=== PATIENT | male | born 1960 | race Caucasian/White ===

== ENCOUNTER 2017-04-19 09:59 | Emergency (ER) | payer MEDICARE, MEDICAID ==
[~2017-04-19] VITALS: Ht 180.3 cm; Wt 101.8 kg
[~2017-04-19 09:59] MED LIST: *ANUSOI; ALDA25TA2; AMBI10TA; CARV12.5; COLA100C2; FISHCAP; KLOR10TA; MELOPOW; METF500T4; MILKPOW; MIRAPEX; NAPR500T; PERC5TAB8; SIMV40TA2; SOMA350T; VITAMIN D50000 UNT; ZARO2.5T
[2017-04-19] MEDS ORDERED: IBUPROFEN 800 MG TAB PO ONE (11:45)
[2017-04-19] MEDS ORDERED: AUGMENTIN 875 MG TAB PO ONE (11:45)
[2017-04-19] MEDS ORDERED: IBUP80TA PO (11:46)
[2017-04-19] MEDS ORDERED: AUGM875T28 PO (11:46)
[2017-04-19 12:02] VITALS: BP 132/80
== END 2017-04-19 12:22 | disposition home or self-care (01) ==
LOC: M ED 11:53
DX: S71.152A Open bite, left thigh, initial encounter (principal); W54.0XXA Bitten by dog, initial encounter; Y92.410 Unspecified street and highway as the place of occurrence of the external cause; Y93.01 Activity, walking, marching and hiking; Y99.8 Other external cause status; F17.210 Nicotine dependence, cigarettes, uncomplicated